=== PATIENT | male | born 1945 | race Caucasian/White ===

== ENCOUNTER 2016-11-04 06:38 | Day surgery (SDC) | payer MEDICARE, OTHER ==
[2016-11-04] MEDS ORDERED: BUPIVACAINE/EPI 0.5% 10 ML SOL INFIL ONE (06:43)
[2016-11-04] MEDS ORDERED: LIDOCAINE HCL 1% MPF SOL ONE (06:47)
[2016-11-04] MEDS ORDERED: SUCCINYLCHOLINE CHLORIDE 20 MG/ML SOL IV ONE (06:47)
[2016-11-04] MEDS ORDERED: KETOROLAC TROMETHAMINE 30 MG/ML SOL ONE (09:01)
[2016-11-04 09:47] VITALS: RESP 16
[2016-11-04 12:39] VITALS: O2SAT 98
[2016-11-04 12:44] VITALS: TEMP 97.5
[2016-11-04 13:07] VITALS: BP 115/74; PULSE 53
== END 2016-11-04 13:10 | disposition home or self-care (01) | DRG 395 ==
LOC: SURG 06:38
PROVIDERS: ATTEND Surgery
DX: K42.0 Umbilical hernia with obstruction, without gangrene (principal)
CPT/HCPCS: J0330; J0690; J1885; J2001; J2250; J2405; J2710; J3010; J7643; J2704